=== PATIENT | male | born 1965 | race Caucasian/White ===

== ENCOUNTER 2016-07-13 11:09 | Emergency (ER) | payer BC, OTHER ==
--- NOTE | 2016-07-13 11:59 | EDM.PDOC ---
ED HPI RENAL/ - General Chief Complaint: Flank Pain Stated Complaint: R SIDE ABDOMINAL PAIN Time Seen by Provider: 07/13/16 11:49 Source of Information: Reports: Patient History Limitations: Reports: No limitations - History of Present Illness INITIAL COMMENTS - FREE TEXT/NARRATIVE: 50-year-old male presents for evaluation and treatment of right-sided flank pain. Patient reports that the pain has been present for one week. He denies any trauma. He reports that the pain is worse with movement and trying to stand. He describes it as a sharp, nagging pain. He states he did see a chiropractor but did not have any symptom relief. He denies any trauma to the area. He denies any fevers, chills, decreased appetite, nausea, vomiting, numbness, tingling, diarrhea, constipation, melena, hematochezia, hematuria, dysuria, urinary incontinence or stool incontinence. Patient denies any surgeries to his abdomen. He is healthy with no known medical conditions. Location: Reports: flank (right) - Related Data Allergies/ADRs: Allergies Allergy/AdvReac Type Severity Reaction Status Date / Time Penicillins Allergy Shortness Verified 07/13/16 11:21 of Breath Home Meds: Home Meds Orphenadrine [Norflex] 100 mg PO BID #15 tab.er 07/13/16 [Rx] Past Medical History - Past Surgical History Musculoskeletal Surgical History: Reports: Other (see below) Other Musculoskeletal Surgeries/Procedures:: LEFT ARM SURGERY WITH A PLATE Social & Family History - Tobacco Use Smoking Status *Q: Never Smoker - Caffeine Use Caffeine Use: Reports: Soda, Tea - Recreational Drug Use Recreational Drug Use: No ED ROS GENERAL - Review of Systems Review Of Systems: See Below Constitutional: Denies: fever, chills, decreased appetite GI/Abdominal: Denies: Abdominal pain, Constipation, Diarrhea, Hematochezia, Melena, Nausea, Vomiting : Reports: flank pain (right). Denies: dysuria, hematuria Musculoskeletal: Denies: back pain Skin: Denies: rash Neurological: Denies: Numbness, Tingling ED EXAM, RENAL/ - Physical Exam Exam: See Below Exam Limited By: No limitations General Appearance: alert, WD/WN, no apparent distress Ears: normal external exam Nose: normal inspection Throat/Mouth: Normal inspection Respiratory/Chest: no respiratory distress, lungs clear, normal breath sounds Cardiovascular: normal peripheral pulses, regular rate, rhythm, no murmur GI/Abdominal: normal bowel sounds, soft, non tender, other (no pain at [place] point) (Male) Exam: Other (tenderness to the right flank with deep palpitaiton) Back Exam: normal inspection, other. No: CVA tenderness (L), CVA tenderness (R) , paraspinal tenderness, vertebral tenderness Extremities: normal inspection Neurological: alert, oriented, normal cognition Psychiatric: normal affect, normal mood Skin Exam: Warm, Dry, Normal color, No rash Course - Vital Signs Last Recorded V/S: Last Vital Signs Temp 36.4 C 07/13/16 11:14 Pulse 69 07/13/16 11:14 Resp 20 07/13/16 11:14 BP 166/95 H 07/13/16 11:14 Pulse Ox 100 07/13/16 11:14 - Orders/Labs/Meds Labs: Laboratory Tests 07/13/16 07/13/16 07/13/16 Range/Units 12:00 12:00 12:10 WBC 5.41 (4.23-9.07) K/mm3 RBC 4.80 (4.63-6.08) M/mm3 Hgb 15.3 (13.7-17.5) gm/L Hct 44.8 (40.1-51.0) % MCV 93.3 H (79.0-92.2) fl MCH 31.9 (25.7-32.2) pg MCHC 34.2 (32.2-35.5) g/dl RDW Std Deviation 42.3 (35.1-43.9) fL Plt Count 136 L (163-337) K/mm3 MPV 11.2 (9.4-12.3) fl Neut % (Auto) 55.8 (34.0-67.9) % Lymph % (Auto) 29.9 (21.8-53.1) % [place] % (Auto) 11.5 (5.3-12.2) % Eos % (Auto) 2.0 (0.8-7.0) Baso % (Auto) 0.6 (0.1-1.2) % Neut # (Auto) 3.02 (1.78-5.38) K/mm3 Lymph # (Auto) 1.62 (1.32-3.57) K/mm3 [place] # (Auto) 0.62 (0.30-0.82) K/mm3 Eos # (Auto) 0.11 (0.04-0.54) K/mm3 Baso # (Auto) 0.03 (0.01-0.08) K/mm3 Sodium 141 (136-145) mEq/L Potassium 4.0 (3.5-5.1) mEq/L Chloride 105 (98-107) mEq/L Carbon Dioxide 30 (21-32) mEq/L Anion Gap 10.0 (5-15) BUN 15 (7-18) mg/dL Creatinine 1.0 (0.7-1.3) mg/dL Est Cr Clr Drug Dosing TNP Estimated GFR (MDRD) > 60 (>60) mL/min BUN/Creatinine Ratio 15.0 (14-18) Glucose 99 (74-106) mg/dL Calcium 8.7 (8.5-10.1) mg/dL Total Bilirubin 0.4 (0.2-1.0) mg/dL AST 28 (15-37) U/L ALT 35 (16-63) U/L Alkaline Phosphatase 80 (46-116) U/L C-Reactive Protein < 0.2 (<1.0) mg/dL Total Protein 6.7 (6.4-8.2) g/dl Albumin 3.8 (3.4-5.0) g/dl Globulin 2.9 gm/dL Albumin/Globulin Ratio 1.3 (1-2) Urine Color Yellow (Yellow) Urine Appearance Clear (Clear) Urine pH 6.0 (5.0-8.0) Ur Specific [place] 1.020 (1.005-1.030) Urine Protein Negative (Negative) Urine Glucose (UA) Negative (Negative) Urine Ketones Negative (Negative) Urine Occult Blood Negative (Negative) Urine Nitrite Negative (Negative) Urine Bilirubin Negative (Negative) Urine Urobilinogen 0.2 (0.2-1.0) Ur Leukocyte Esterase Negative (Negative) Urine RBC 0-5 (0-5) /hpf Urine WBC 0-5 (0-5) /hpf Ur Epithelial Cells Not Reportable Ur Squamous Epith Cells Not seen (0-5) /hpf Urine Bacteria Occasional (FEW) /hpf Urine Mucus Not seen (FEW) /hpf - Re-Assessments/Exams Free Text/Narrative Re-Assessment/Exam: 07/13/16 13:40 Labs have returned. White blood cell count is normal at 5.41, hemoglobin is 14.3 platelets are 136. CRP is normal less than 0.2. Sodium is 141, potassium is 4.0 chloride is 105. Anion gap is 10.0. UA is negative for any blood, nitrites or leukocytes. I reviewed the labs with the patient. Offered Ct versus watchful waiting. Given his normal labs and his normal physical exam I do not see the need for any imaging at this time. I did offer him a CT. I feel that this is most likely musculoskeletal in nature. I propose that we proceed with medications and may CT if his symptoms do not improve. He agrees with this and Elects to proceed with watchful waiting. Discharge instructions as documented. Departure - Departure Time of Disposition: 13:42 Disposition: Home, Self-Care 01 Condition: good Clinical Impression: Muscle strain Prescriptions: Orphenadrine [Norflex] 100 mg PO BID #15 tab.er Instructions: Muscle Strain, [id number] Referrals: PCP,None [Primary Care Provider] - Forms: ED Department Discharge Additional Instructions: Take norflex as prescribed. 1 tab PO bid. This medication may make you drowsy. Do not drive or operate machinery until you know how this medication will affect your. OTC ibuprofen or aleve for anti-inflammatory effect. Heat to the sore area. If not better in 7-10 days follow-up with family med. Recommend Dr. Taveras or David Levy at the [facility], [place], operated by [facility]. Call [phone] to schedule with one of them. Please return to the ER should your symptoms change or worsen.
== END 2016-07-13 13:52 | disposition home or self-care (01) ==
LOC: JD.ED 11:09
DX: T14.8 Other injury of unspecified body region (principal); Z88.0 Allergy status to penicillin; X58.XXXA Exposure to other specified factors, initial encounter
CPT/HCPCS: 36415; 80053; 81001; 85025; 86140; 99283